=== PATIENT | female | born 1960 | race Caucasian/White ===

== ENCOUNTER 2018-09-21 04:37 | Emergency (ER) | payer OTHER ==
[~2018-09-21] VITALS: Ht 162.6 cm; Wt 72.6 kg
[~2018-09-21 04:37] MED LIST: DOLOGESIC CAPSU1 CAP PO; OSEL75CA PO
[2018-09-21] MEDS ORDERED: ALBUTEROL2.5 MG/3 M IH (08:00)
[2018-09-21] MEDS ORDERED: PROMETHAZINE D118 ML PO (08:00)
== END 2018-09-21 08:11 | disposition home or self-care (01) ==
LOC: ER 04:37
DX: R05 Cough (principal)

== ENCOUNTER 2018-10-28 03:44 | Emergency (ER) | payer OTHER ==
[~2018-10-28] VITALS: Ht 165.1 cm; Wt 71.7 kg
[~2018-10-28 03:44] MED LIST changes: +ALBUTEROL2.5 MG/3 M IH; +PROMETHAZINE D118 ML PO
== END 2018-10-28 10:18 | disposition home or self-care (01) ==
LOC: ER 03:44
DX: J06.9 Acute upper respiratory infection, unspecified (principal)

== ENCOUNTER 2020-08-12 12:31 | Emergency (ER) | payer OTHER ==
[~2020-08-12] VITALS: Ht 162.6 cm; Wt 74.8 kg
== END 2020-08-12 15:13 ==
LOC: ER 12:31
DX: R07.89 Other chest pain (principal)

== ENCOUNTER 2021-02-11 11:53 | Emergency (ER) | payer OTHER ==
[~2021-02-11] VITALS: Ht 162.6 cm; Wt 73.9 kg
[2021-02-12] MEDS ORDERED: HYDROCHLOROTHIA25 MG PO (05:27)
== END 2021-02-11 16:00 | disposition home or self-care (01) ==
LOC: ER 11:53
DX: M94.0 Chondrocostal junction syndrome [Tietze] (principal); S13.4XXA Sprain of ligaments of cervical spine, initial encounter; X58.XXXA Exposure to other specified factors, initial encounter; Y93.89 Activity, other specified; Y92.89 Other specified places as the place of occurrence of the external cause; Y99.8 Other external cause status; R07.89 Other chest pain

== ENCOUNTER 2021-02-12 01:52 | Emergency (ER) | payer OTHER ==
[~2021-02-12] VITALS: Ht 162.6 cm; Wt 73.9 kg
[2021-02-12] MEDS ORDERED: HYDROCHLOROTHIA25 MG PO (05:27)
== END 2021-02-12 05:32 ==
LOC: ER 01:52
DX: R00.2 Palpitations (principal); I10 Essential (primary) hypertension

== ENCOUNTER → 2024-08-10 | Emergency (ER) | payer OTHER ==
[~2024-08-10] VITALS: Ht 162.6 cm; Wt 77.6 kg
[~2024-08-10] MED LIST changes: +DEXAMETHASONE SODIUM PHOSPHATE 4 MG/ML VIAL IM STA; +HYDROCHLOROTHIA25 MG PO; +KETOROLAC TROMETHAMINE 60 MG VIAL IM STA
== END | disposition home or self-care (01) ==
LOC: ER 12:08
DX: M94.0 Chondrocostal junction syndrome [Tietze] (principal); M77.12 Lateral epicondylitis, left elbow; R10.9 Unspecified abdominal pain; Z88.2 Allergy status to sulfonamides; Z91.041 Radiographic dye allergy status